=== PATIENT | male | born 1980 | race Caucasian/White ===

== ENCOUNTER 2016-09-12 18:18 | Emergency (ER) | payer BC ==
[2016-09-12 19:36] LABS: HEMOGLOBIN 13.5 gm/dl (14.0-17.5); RED BLOOD COUNT 4.38 M/UL (4.20-5.50); WHITE BLOOD COUNT 6.9 K/UL (4.5-11.0)
[2016-09-12 20:00] LABS: BUN/CREATININE RATIO 11 (0-10)
== END 2016-09-13 02:43 | disposition home or self-care (01) ==
LOC: ER1 18:18
PROVIDERS: Emergency Medicine
DX: R10.31 Right lower quadrant pain (principal); J90 Pleural effusion, not elsewhere classified; R31.29 Other microscopic hematuria; R50.9 Fever, unspecified; I10 Essential (primary) hypertension; E78.5 Hyperlipidemia, unspecified; Z79.899 Other long term (current) drug therapy
CPT/HCPCS: 36415; 71010; 80053; 81001; 82150; 83690; 85025; 96374; 99284; J2270; J2405; J7030; J7050; Q9962